=== PATIENT | female | born 1945 | race Caucasian/White ===

== ENCOUNTER 2020-07-12 19:25 | Emergency (ER) | payer SELFPAY ==
[~2020-07-12] VITALS: Ht 177.8 cm; Wt 78.0 kg
[~2020-07-12 19:25] MED LIST: ATEN-42 PO; DILT180C66 PO; FURO-151 PO; GUAI600T26 PO; LEVO500T2 PO; LOSA25TA3 PO; METO50TA95 PO; MINE105O TP; RIVA20TA PO; [UNRECOGNIZED DRUG - CODE] IV; [UNRECOGNIZED DRUG - CODE] PO; kcl PO
[2020-07-12] MEDS ORDERED: DILTIAZEM HCL 5MG/ML 5ML VIAL IV NR (20:30)
[2020-07-12] MEDS ORDERED: IOHEXOL-350 100 ML BOTTLE ONE (22:10)
[2020-07-12 22:12] LABS: BASOPHILS % 0.9 % (0.0-2.0); EOSINOPHILS % 1.1 % (0.0-5.0); HEMATOCRIT. 39.3 % (36.0-48.0); LYMPHOCYTES % 15.8 % (20.0-50.0); MEAN CORPUSCULAR HEMOGLOBIN 28.5 pg (28.0-32.0); MEAN CORPUSCULAR VOLUME 85.8 fL (81.0-99.0); MEAN PLATELET VOLUME 8.3 fl (7.4-10.4); MONOCYTES % 7.2 % (2.0-8.0); PLATELET 199 x1000/uL (130-400); RED BLOOD CELL COUNT 4.57 mill/uL (4.2-5.4); RED CELL DISTRIBUTION WIDTH 13.7 % (11.6-14.6)
[2020-07-12 22:14] LABS: CHLORIDE 102 mEq/L (98-107)
[2020-07-12 22:19] LABS: ETHANOL BLOOD < 10 mg/dL; PROTHROMBIN TIME 10.8 sec (9.6-11.0)
[2020-07-12 22:20] LABS: LDL CHOLESTEROL 125 mg/dL (5-100)
[2020-07-12] MEDS ORDERED: ALTEPLASE 100MG/VIAL IV NR (22:25)
[2020-07-12] MEDS ORDERED: CONTAINER EMPTY IV NR (22:30)
[2020-07-12] MEDS ORDERED: ALTEPLASE IV NR (22:30)
[2020-07-12] MEDS ORDERED: *NO ASPIRIN X 24 HOURS XX SCH (22:45)
[2020-07-12 23:24] LABS: CLARITY URINE CLEAR (CLEAR); COLOR URINE YELLOW (YELLOW); KETONES URINE TRACE (NEGATIVE); LEUKOCYTE ESTERASE URINE NEGATIVE (NEGATIVE); NITRITE URINE NEGATIVE (NEGATIVE); OCCULT BLOOD URINE NEGATIVE (NEGATIVE); PROTEIN URINE NEGATIVE (NEGATIVE); UROBILINOGEN URINE 0.2 E.U./dL (0.2-1.0)
[2020-07-12 23:34] LABS: *AMPHETAMINES SCREEN URINE NEGATIVE (NEGATIVE); *BARBITURATES SCREEN URINE NEGATIVE (NEGATIVE); *BENZODIAZEPINES SCREEN URINE NEGATIVE (NEGATIVE); *COCAINE SCREEN URINE NEGATIVE (NEGATIVE); METHADONE URINE SCREEN NEGATIVE (NEGATIVE); OPIATES URINE SCREEN NEGATIVE (NEGATIVE)
[2020-07-12 23:35] LABS: CANNABINOID URINE SCREEN NEGATIVE (NEGATIVE); PHENCYCLIDINE URINE SCREEN NEGATIVE (NEGATIVE)
[2020-07-13] MEDS ORDERED: SODIUM CHLORIDE 0.9% 1000ML BAG (SEPSIS BOLUS) IV NR (00:30)
[2020-07-13 00:33] VITALS: BP 171/86
== END 2020-07-13 00:59 | disposition short-term general hospital (02) ==
LOC: ER 19:25
DX: I63.9 Cerebral infarction, unspecified (principal); Z88.0 Allergy status to penicillin; Z88.6 Allergy status to analgesic agent; Z79.899 Other long term (current) drug therapy; Z88.8 Allergy status to other drugs, medicaments and biological substances
CPT/HCPCS: 36415; 70450; 70496; 71045; 80053; 80305; 80320; 81003; 82962; 83721; 83880; 84484; 85025; 85610; 93005; 96374; 99285; J2997; J3490; Q9967; J7060; G0480